=== PATIENT | female | born 1955 | race Caucasian/White ===

== ENCOUNTER 2020-08-21 10:57 | Emergency (ER) | payer MEDICARE ==
[~2020-08-21] VITALS: Ht 180.3 cm; Wt 90.9 kg
[2020-08-21 11:18] VITALS: BP 149/95
== END 2020-08-21 12:37 | disposition home or self-care (01) ==
LOC: ER 10:58
DX: R05 Cough (principal); R53.83 Other fatigue; Z20.828 Contact with and (suspected) exposure to other viral communicable diseases; I10 Essential (primary) hypertension; F32.9 Major depressive disorder, single episode, unspecified
CPT/HCPCS: 36415; 87635; 99283

== ENCOUNTER 2021-12-20 20:43 | Emergency (ER) | payer MEDICARE ==
[~2021-12-20] VITALS: Ht 180.3 cm; Wt 86.4 kg
[2021-12-20] MEDS ORDERED: diphenhydrAMINE 50 mg/ml inj IM ONE (21:40)
[2021-12-20] MEDS ORDERED: LORazepam 2 mg/ml vial IM ONE (21:40)
[2021-12-20] MEDS ORDERED: haloperidol lactate 5mg/ml inj IM ONE (21:40)
[2021-12-20] MEDS ORDERED: diphenhydrAMINE 50 mg/ml inj ONE (21:47)
--- NOTE | 2021-12-20 22:10 | NUR ---
Patient tried to walk out of ER. Patient was escorted back to her room by security. She is tearful, stating she wants her and wants to go home. She is difficult to redirect. MD ordered medications to calm patient. Pt is stating she is not crazy and she wants her . Patient cooperated with the injections after a lengthy attempt at redirection. Pt is in green scrubs and provided a urine sample. She was given water on request. Pt decline a snack and warm blanket. When asked, patient stated she did not want to hurt herself and felt that a statement she made about falling into a deep canyon was misunderstood. The process of a 1798 24 hour hold, lab and urine tests and referral to [facility] described to patient. She is now resting quietly in bed.
[2021-12-20 22:45] LABS: CLARITY,URINE CLEAR (Clear); COLOR,URINE YELLOW (Yellow); GLUCOSE, URINE NEGATIVE (Neg); KETONES,URINE NEGATIVE (Neg); LEUKOCYTE ESTERASE ,URINE NEGATIVE (Neg); NITRITES, URINE NEGATIVE (Neg); OCCULT BLOOD,URINE TRACE-INTACT (Neg); PROTEIN,URINE NEGATIVE (Neg); UROBILINOGEN,URINE 0.2 E.U/dL (0.2-1.0)
--- NOTE | 2021-12-20 22:48 | NUR ---
Pt condition discussed with patient . The process and procedures of a 1799 hold discussed and explained. is Clarke Fry [phone]. given ER phone number and told he is welcome to call and check on pt anytime, stated pt told him she mentioned several times that she wanted to drive her car off a bridge and into a canyon while driving home from [place]. stated that pt has an ETOH problem and possibly drank a fifth of whiskey today with the last drink at approx. 1600. He stated that patient is seeing a GI specialist for liver disorders r/t ETOH. Patient stated that this is the first time patient has verbalized any desire to hurt herself.
[2021-12-20 22:50] LABS: BACTERIA,URINE NONE SEEN /HPF (Neg); RBC,URINE 0-2 /HPF (0-2); SQUAMOUS EPITHELIAL CELL,UR FEW /LPF (FEW); UA COLLECTION TYPE CLN CATCH MIDSTREAM; WBC,URINE NONE SEEN /HPF (0-4)
[2021-12-20 22:56] LABS: URINE AMPHETAMINE SCREEN NEGATIVE (Neg); URINE BARBITUATE SCREEN NEGATIVE (Neg); URINE BENZODIAZEPINES SCREEN NEGATIVE (Neg); URINE CANNABINOID SCREEN NEGATIVE (Neg); URINE COCAINE SCREEN NEGATIVE (Neg); URINE METHADONE SCREEN NEGATIVE (Neg); URINE OPIATE SCREEN NEGATIVE (Neg); URINE PHENCYCLIDINE SCREEN NEGATIVE (Neg)
[2021-12-20] MEDS ORDERED: TRAZ-256 PO (23:06)
[2021-12-20] MEDS ORDERED: OLME-7 PO (23:06)
--- NOTE | 2021-12-20 23:09 | NUR ---
Pt stated she takes bupropion, but she does not have a current perscription according to external med rec.
[2021-12-21 00:20] LABS: BASOPHILS % (AUTO) 0.6 % (0-1); HEMOGLOBIN 13.7 g/dl (12.0-16.0); LYMPHOCYTES # (AUTO) 1.2 X10'3 (1.1-4.8); MEAN CORPUSCULAR HEMOGLOBIN 31.4 PG (27.0-31.0); MEAN CORPUSCULAR HGB CONC 33.5 g/dL (33.0-36.5); MEAN CORPUSCULAR VOLUME 93.8 FL (78-98); MEAN PLATELET VOLUME 6.6 FL (7.4-10.4); MONOCYTES # (AUTO) 0.3 X10'3 (0-0.9); MONOCYTES % (AUTO) 7.6 % (2-12); NEUTROPHILS # (AUTO) 2.9 X10'3 (1.8-7.7); NEUTROPHILS % (AUTO) 63.8 % (42-75); PLATELET COUNT 207 X10'3 (140-440); RED BLOOD COUNT 4.37 X10'6 (4.20-5.60); RED CELL DISTRIBUTION WIDTH 14.9 % (11.5-14.5); WHITE BLOOD COUNT 4.6 X10'3 (4.5-11.0)
--- NOTE | 2021-12-21 00:20 | NUR ---
Pt arrived to unit from ER, PT ALEEP OA, PT awakened to transfer from stretcher to bed, pt ambulated with steady gait, pt appears to be drowsy but arousable, pt currently denies SI and wants to sleep. No acute or respiratory distress noted.
[2021-12-21 00:35] LABS: ALANINE AMINOTRANSFERASE 92 U/L (12-78); ALBUMIN 3.6 G/DL (3.4-5.0); ALBUMIN/GLOBULIN RATIO 1.1 (1.1-1.5); ALKALINE PHOSPHATASE 71 IU/L (46-116); ANION GAP 19 (8-16); ASPARTATE AMINO TRANSFERASE 79 U/L (10-37); BILIRUBIN,TOTAL 0.2 MG/DL (0.1-1.0); BLOOD UREA NITROGEN 7 MG/DL (7-18); BUN/CREATININE RATIO 8.4 (6.6-38.0); CALCIUM 9.2 MG/DL (8.5-10.1); CHLORIDE 107 MMOL/L (99-107); CREATININE 0.83 MG/DL (0.40-0.90); GLUCOSE 111 MG/DL (70-104); POTASSIUM 3.1 MMOL/L (3.5-5.1); SODIUM 148 MMOL/L (135-145); TOTAL CARBON DIOXIDE 22.5 MMOL/L (24-32); TOTAL PROTEIN 6.9 G/DL (6.4-8.2); eGFR 69 ML/MIN
[2021-12-21 00:49] LABS: ETHANOL 0.242 GM/DL (0.0-0.010)
--- NOTE | 2021-12-21 02:20 | NUR ---
pt sleeping well with mouth ajar and making snoring sound, no acute distress noted at this time.
[2021-12-21 05:13] VITALS: BP_DIAS 77
--- NOTE | 2021-12-21 05:18 | NUR ---
Pt sleeping in bed on left side, no acute distress noted.
[2021-12-21] MEDS ORDERED: losartan 50mg tablet PO SCH (08:00)
[2021-12-21] MEDS ORDERED: HYDROchlorothiazide 12.5mg capsule PO SCH (08:00)
--- NOTE | 2021-12-21 08:11 | NUR ---
PATIENT STATES SHE IS FEELING NERVOUS AND EDGY FROM ETOH WITHDRAWALS. REQUESTING MEDICATION, IF POSSIBLE.
[2021-12-21] MEDS ORDERED: LORazepam 1 MG tablet PO ONE (08:40)
[2021-12-21 08:48] VITALS: BP_SYST 121
--- NOTE | 2021-12-21 08:53 | NUR ---
MEETING WITH MENTAL HEALTH WORKER AT PRESENT, REGARDING DISCHARGE PLAN FOR MENTAL HEALTH AND ALCOHOL ABUSE. PATIENT MEDICATED FOR C/O NERVOUSNESS WITH ATIVAN. RESTING IN BED, COOPERATIVE AT PRESENT.
--- NOTE | 2021-12-21 10:05 | NUR ---
TC TO PATRICIO, SUBSTANCE USE NAVIGATOR ([phone]), CONTACTED FOR INFORMATION AND CONSULTATION RE: [facility]P ETOH ABUSE. PATRICIO WILL BE COMING TO SEE PATIENT AND SHARE INFORMATION WITH HER.
--- NOTE | 2021-12-21 10:27 | NUR ---
PATRICIO IS HERE TO SPEAK WITH PATIENT ABOUT ETOH WITHDRAWAL PROGRAMS AND RECOMMENDED MEDICATIONS THAT MAY ASSIST IN ATTAINING SOBRIETY. PATIENT IS INTERESTED AND ENGAGED IN THE CONVERSATION.
--- NOTE | 2021-12-21 10:56 | NUR ---
Met with patient in regards to alcohol use and to see if patient wanted any resources for treatment options. Patient feels like she needs help. I talked to patient about medication to help with cravings. I gave patient a list of places in [facility] that she can call to start attending AA meetings. I recommended patient calling her insurance to find out about inpatient treatment options. I gave patient my card and told her she can call me with any questions.
--- NOTE | 2021-12-21 13:43 | NUR ---
PATIENTS TALKING TO [facility]ENT[facility] HE[facility] COUNSELOR
[2021-12-21] MEDS ORDERED: traZODone 50mg tablet PO SCH (21:00)
== END 2021-12-21 13:52 ==
LOC: ER 20:43
DX: F43.0 Acute stress reaction (principal); Z20.822 Contact with and (suspected) exposure to COVID-19; R45.851 Suicidal ideations; I10 Essential (primary) hypertension; F32.A Depression, unspecified; Z79.899 Other long term (current) drug therapy
CPT/HCPCS: 36415; 80053; 80305; 80320; 81001; 84443; 85025; 87635; 96372; 99285; C9803; J1200; J1630; J2060

== ENCOUNTER 2022-02-16 12:05 | Outpatient (CLI) | payer MEDICARE ==
[~2022-02-16 12:05] MED LIST: OLME-7 PO; TRAZ-256 PO
== END 2022-02-16 23:59 | disposition home or self-care (01) ==
LOC: RAD 12:05
PROVIDERS: ATTEND Orthopaedic Surgery
DX: Z01.810 Encounter for preprocedural cardiovascular examination (principal)
CPT/HCPCS: 93005